=== PATIENT | male | born 1975 | race Caucasian/White ===

== ENCOUNTER 2024-12-05 17:24 | Emergency (ER) | payer MEDICAID, OTHER ==
[~2024-12-05] VITALS: Ht 167.6 cm; Wt 64.7 kg
[~2024-12-05 17:24] MED LIST: CEPH500C2 PO; SULF-168 PO
[2024-12-05 17:38] VITALS: TEMP 98.2
[2024-12-05] MEDS: ACETAMINOPHEN 500 MG TABLET PO ONE (18:15)
[2024-12-05] MEDS: IBUPROFEN 400 MG TABLET PO ONE (19:54)
[2024-12-05 22:27] VITALS: BP 124/81; PULSE 64; RESP 18; O2SAT 95
== END 2024-12-05 23:31 ==
LOC: EMS 17:24
DX: S00.03XA Contusion of scalp, initial encounter (principal); S50.01XA Contusion of right elbow, initial encounter; F17.210 Nicotine dependence, cigarettes, uncomplicated; Z98.890 Other specified postprocedural states; Z79.899 Other long term (current) drug therapy; Z91.018 Allergy to other foods; Z88.0 Allergy status to penicillin; Y04.0XXA Assault by unarmed brawl or fight, initial encounter; Y93.89 Activity, other specified; Y92.89 Other specified places as the place of occurrence of the external cause; Y99.8 Other external cause status
CPT/HCPCS: 70450; 99284